=== PATIENT | female | born 1990 | race Caucasian/White ===

== ENCOUNTER 2019-10-28 08:08 | Outpatient (CLI) | payer OTHER, SELFPAY ==
[2019-10-28 08:42] LABS: Basophils Absolute Auto 0.1 K/mm3 (0.0-0.1); Basophils Percent Auto 1.6 % (0.2-1.2); Eosinophils Absolute Auto 0.8 K/mm3 (0-0.3); Eosinophils Percent Auto 9.9 % (0-4.4); Hematocrit 41.1 % (37.0-47.0); Hemoglobin 15.2 g/dL (12.0-15.0); Immature Granulocyte Absolute 0.02 K/mm3 (0.00-0.031); Immature Granulocyte Percent A 0.3 % (0-0.5); Lymphocytes Absolute Auto 2.54 K/mm3 (0.9-3.2); Lymphocytes Percent Auto 33.2 % (18.3-44.2); Mean Corpuscular Hemoglobin 32.1 pg (26-34); Mean Corpuscular Volume 86.9 fl (80-100); Mean Platelet Volume 10.5 fl (7.4-10.4); Monocytes Absolute Auto 0.7 K/mm3 (0.1-0.6); Monocytes Percent Auto 9.7 % (2.6-8.5); Neutrophils Absolute Auto 3.5 K/mm3 (1.3-6.7); Neutrophils Percent Auto 45.3 % (45.5-73.1); Platelet Count Result 293 k/mm3 (150-375); Red Blood Count 4.73 M/mm3 (4.2-5.4); Red Cell Distribution Width 12.8 % (11.5-14.5); White Blood Count 7.6 K/mm3 (4.5-10.0)
[2019-10-28 11:23] LABS: Alanine Aminotransferase 11 U/L (4-35); Albumin Level 4.7 g/dL (3.5-5.1); Alkaline Phosphatase 62 U/L (38-126); Aspartate Amino Transferase 17 U/L (14-36); Bilirubin,Total 0.9 mg/dL (0.2-1.3); Blood Urea Nitrogen 10 mg/dL (7-17); Calcium 10.3 mg/dL (8.4-10.2); Carbon Dioxide 23 mmol/L (22-30); Chloride 104 mmol/L (98-107); Cholesterol 138 mg/dL (0-200); Estimated Glomerular Filt Rate > 60; Glucose 104 mg/dL (65-105); HDL Direct 45 mg/dL; Potassium 3.9 mmol/L (3.4-5.0); Sodium 140 mmol/L (137-145); Triglycerides 55 mg/dL (<150)
[2019-10-28 11:34] LABS: LDL Cholesterol Direct 91 mg/dL
[2019-10-28 11:52] LABS: Thyroid Stimulating Hormone 0.737 uIU/mL (0.465-4.680)
[2019-11-04 18:57] LABS: EBV Nuclear Ab Antibody >600.00 U/mL (<18.00); EBV Nuclear Ab Interpretation Past; EBV Virus Capsid Ag IgG Ab >750.00 U/mL (<18.00); EBV Virus Capsid Ag IgM Ab <36.00 U/mL (<36.00)
== END 2019-10-28 08:09 | disposition home or self-care (01) ==
LOC: ANHLAB 08:09
PROVIDERS: PCP Family Medicine; Visit Provider Family Medicine
DX: Z00.00 Encounter for general adult medical examination without abnormal findings (principal); F32.9 Major depressive disorder, single episode, unspecified; R53.83 Other fatigue
CPT/HCPCS: 36415; 80053; 80061; 84443; 85025; 86664; 86665

== ENCOUNTER 2019-12-23 11:34 | Outpatient (CLI) | payer OTHER, SELFPAY ==
[2019-12-23 11:47] LABS: Basophils Absolute Auto 0.1 K/mm3 (0.0-0.1); Basophils Percent Auto 1.6 % (0.2-1.2); Eosinophils Absolute Auto 0.6 K/mm3 (0-0.3); Eosinophils Percent Auto 7.2 % (0-4.4); Hematocrit 40.8 % (37.0-47.0); Immature Granulocyte Absolute 0.02 K/mm3 (0.00-0.031); Immature Granulocyte Percent A 0.2 % (0-0.5); Lymphocytes Absolute Auto 3.11 K/mm3 (0.9-3.2); Lymphocytes Percent Auto 35.6 % (18.3-44.2); Mean Corpuscular HGB Conc 36.8 g/dl (32-36); Mean Corpuscular Hemoglobin 33.7 pg (26-34); Mean Corpuscular Volume 91.7 fl (80-100); Mean Platelet Volume 10.2 fl (7.4-10.4); Monocytes Absolute Auto 0.8 K/mm3 (0.1-0.6); Monocytes Percent Auto 9.4 % (2.6-8.5); Platelet Count Result 298 k/mm3 (150-375); Red Blood Count 4.45 M/mm3 (4.2-5.4); Red Cell Distribution Width 12.5 % (11.5-14.5); White Blood Count 8.7 K/mm3 (4.5-10.0)
== END 2019-12-23 11:35 | disposition home or self-care (01) ==
LOC: ANHLAB 11:36
PROVIDERS: PCP Family Medicine; Visit Provider Family Medicine
DX: B27.90 Infectious mononucleosis, unspecified without complication (principal)
CPT/HCPCS: 36415; 85025

== ENCOUNTER 2020-03-17 09:10 | Outpatient (CLI) | payer OTHER, SELFPAY ==
[2020-03-17 09:59] LABS: Basophils Absolute Auto 0.1 K/mm3 (0.0-0.1); Basophils Percent Auto 0.6 % (0.2-1.2); Eosinophils Percent Auto 0.1 % (0-4.4); Hematocrit 38.7 % (37.0-47.0); Hemoglobin 14.1 g/dL (12.0-15.0); Immature Granulocyte Absolute 0.02 K/mm3 (0.00-0.031); Immature Granulocyte Percent A 0.2 % (0-0.5); Lymphocytes Absolute Auto 1.24 K/mm3 (0.9-3.2); Lymphocytes Percent Auto 14.3 % (18.3-44.2); Mean Corpuscular HGB Conc 36.4 g/dl (32-36); Mean Corpuscular Hemoglobin 33.3 pg (26-34); Mean Corpuscular Volume 91.5 fl (80-100); Mean Platelet Volume 10.3 fl (7.4-10.4); Monocytes Absolute Auto 0.5 K/mm3 (0.1-0.6); Monocytes Percent Auto 6.1 % (2.6-8.5); Neutrophils Absolute Auto 6.8 K/mm3 (1.3-6.7); Neutrophils Percent Auto 78.7 % (45.5-73.1); Platelet Count Result 309 k/mm3 (150-375); Red Blood Count 4.23 M/mm3 (4.2-5.4); Red Cell Distribution Width 12.3 % (11.5-14.5); White Blood Count 8.7 K/mm3 (4.5-10.0)
[2020-03-17 13:23] LABS: Alanine Aminotransferase 12 U/L (4-35); Albumin Level 4.6 g/dL (3.5-5.1); Alkaline Phosphatase 64 U/L (38-126); Aspartate Amino Transferase 22 U/L (14-36); Bilirubin,Total 0.8 mg/dL (0.2-1.3); Blood Urea Nitrogen 14 mg/dL (7-17); Calcium 10.1 mg/dL (8.4-10.2); Carbon Dioxide 25 mmol/L (22-30); Chloride 105 mmol/L (98-107); Cholesterol 145 mg/dL (0-200); Estimated Glomerular Filt Rate > 60; Glucose 103 mg/dL (65-105); HDL Direct 56 mg/dL; Potassium 4.3 mmol/L (3.4-5.0); Sodium 137 mmol/L (137-145); Triglycerides 48 mg/dL (<150)
[2020-03-17 13:30] LABS: Rheumatoid Factor < 8.6 IU/ML (<12)
[2020-03-17 13:37] LABS: LDL Cholesterol Direct 81 mg/dL
[2020-03-17 13:52] LABS: Thyroid Stimulating Hormone 0.526 uIU/mL (0.465-4.680)
[2020-03-22 19:12] LABS: ANA Cascade Screen Negative (Negative)
== END 2020-03-17 09:11 | disposition home or self-care (01) ==
PROVIDERS: PCP Family Medicine; Visit Provider Family Medicine
DX: L50.9 Urticaria, unspecified (principal)
CPT/HCPCS: 36415; 80053; 80061; 84443; 85025; 86038; 86430

== ENCOUNTER 2020-05-21 08:35 | Outpatient (CLI) | payer OTHER, SELFPAY ==
--- NOTE | ~2020-05-21 | US_ITS ---
EXAMINATION: US right upper quadrant DATE: 05/21/2020 09:02 INDICATION: Right upper quadrant abdominal pain. TECHNIQUE: Multiple grayscale and Doppler ultrasound images of the abdomen were obtained. COMPARISON: Ultrasound 07/09/2019 FINDINGS: The visualized portions of the head, body, and tail of the pancreas are normal. The liver i s normal without focal lesion. There is normal flow in main portal vein. The gallbladder is normal in size and contains sludge. No gallstones or gallbladder wall thickening. There was no sonographic Mur phy sign. The common duct is normal and measures 3 mm. IMPRESSION: 1. Gallbladder sludge. No evidence of acute cholecystitis. Reviewed, dictated and finalized at location A.
== END 2020-05-21 08:36 | disposition home or self-care (01) ==
PROVIDERS: PCP Family Medicine; Visit Provider Family Medicine
DX: R07.81 Pleurodynia (principal); M25.519 Pain in unspecified shoulder; R10.11 Right upper quadrant pain; K82.8 Other specified diseases of gallbladder
CPT/HCPCS: 76705

== ENCOUNTER 2020-05-24 14:56 | Outpatient (CLI) | payer OTHER, SELFPAY ==
[2020-05-24 16:37] LABS: Alanine Aminotransferase 11 U/L (4-35); Albumin Level 4.7 g/dL (3.5-5.1); Alkaline Phosphatase 62 U/L (38-126); Amylase 64 U/L (30-110); Aspartate Amino Transferase 21 U/L (14-36); Bilirubin,Total 0.5 mg/dL (0.2-1.3); Lipase 169 U/L (23-300)
== END 2020-05-24 14:57 | disposition home or self-care (01) ==
LOC: ANHLAB 14:59
PROVIDERS: PCP Family Medicine; Visit Provider Surgery
DX: K81.9 Cholecystitis, unspecified (principal)
CPT/HCPCS: 36415; 80076; 82150; 83690; 86850; 86900; 86901

== ENCOUNTER 2020-05-30 01:09 | Outpatient (CLI) | payer OTHER, SELFPAY ==
[2020-05-30 18:01] LABS: SARS-CoV-2 RNA PCR Negative
== END 2020-05-30 01:10 | disposition home or self-care (01) ==
LOC: ANHCOVIDDT 01:09
PROVIDERS: PCP Family Medicine; Visit Provider Surgery
DX: Z01.812 Encounter for preprocedural laboratory examination (principal); Z20.828 Contact with and (suspected) exposure to other viral communicable diseases
CPT/HCPCS: 87635; C9803; U0003

== ENCOUNTER 2020-06-01 01:32 | Day surgery (SDC) | payer OTHER, SELFPAY ==
[2020-05-23 10:07] VITALS: BMI 24.3
[2020-06-01] VITALS (7 sets, daily range): BP systolic 102–108; BP diastolic 58–68; PULSE 50–65; RESP 12–19; TEMP 35.8–36.7; O2SAT 97–100
--- NOTE | 2020-06-01 07:04 | WPDHPUPDATE1 ---
History and Physical Update Update Date/Time: 06/01/20 07:04 History and Physical has been reviewed, including an updated exam of the patient. There are NO changes in the patient's condition. Risks, benefits, and alternatives have been discussed and questions answered. Patient agrees to proceed with procedure.
--- NOTE | 2020-06-01 08:53 | P.PNAN_ITS ---
Anes - Initial Pre Proc Eval Procedure: Operation Date: 06/01/20 10:45 Proposed Procedures p Laparoscopic Cholecystectomy - Bharath Dennis MD Date/Time: 06/01/20 08:53 Surgeon: Bharath Dennis MD Pre Op Diagnosis: Acalculous Chronic Cholecystitis Patient Data Age: 30 Gender: F Height: 5 ft 1 in Weight: 58.51 kg Allergies Allergy/AdvReac Type Severity Reaction Status Date / Time bee venom protein (honey bee) Allergy Severe very Verified 06/01/20 09:03 severe hives everywhere Sulfa (Sulfonamide Allergy Severe Hives Verified 06/01/20 09:03 Antibiotics) Home Medications Medication Instructions Recorded Confirmed Type alprazolam 0.25 mg tablet 0.25 mg PO DAILY PRN #30 tablet 08/20/19 05/23/20 Rx diphenhydramine HCl [Benadryl 25 mg PO QPM 05/23/20 05/23/20 History Allergy] epinephrine [EpiPen 2-Tereso] 0.3 mg IM ONCE PRN 05/23/20 05/23/20 History famotidine 40 mg PO DAILY 05/23/20 05/23/20 History lamotrigine 50 mg PO QPM 05/23/20 05/23/20 History sertraline 100 mg PO QPM 05/23/20 05/23/20 History valacyclovir [Valtrex] 1,000 mg PO QPM 05/23/20 05/23/20 History Patient hx anesthesia problems: none Family hx anesthesia problems: none PMFSH Social History Social History (Updated 05/23/20 @ 08:53 by Zulma Carrizales [facility]) Smoking packs per day: 0.5 Smoking cigarettes per day: 10.0 Years smoked: 17 Smoking pack-years: 8.50 Smoking status: Current every day smoker Tobacco type: cigarettes Second hand tobacco smoke exposure: Yes Alcohol intake: current Drinks per week: 12 Substance use: current Substance use type: marijuana Last use: 05/22/20 Additional occupation/education comments: abrasive grinder Gender identity (if verbalized by the patient): Female Spiritual care concerns: No Anes - Eval Final PreProcedure Day of Procedure 06/01/20 08:53 Patient weight: normal Heart: regular rate and rhythm Lungs: clear to auscultation Airway: Mallampati scale class II Neurological: alert and oriented ASA classification: II Emergent: no Anesthetic plan: proceed Anesthesia type and monitoring: general ETT and standard monitoring Informed Consent: The patient's anesthetic plan and its attendant risks and benefits were discussed with the patient/family/POA. Questions were solicited and answers provided to the satisfaction of the patient/family/POA.
[2020-06-01] MEDS: ACETAMINOPHEN 500 MG TABLET 1000 MG PO (09:23)
--- NOTE | 2020-06-01 09:56 | P.OP_ITS ---
Procedure Note - Detailed Date of procedure: 06/01/20 Pre-op diagnosis: Acalculous Chronic Cholecystitis Chronic cholecystitis Post-op diagnosis: same Procedure performed: Laparoscopic cholecystectomy Description of procedure: The patient was taken to surgery and induced into general anesthesia. The abdomen was prepped and draped. Trocars were placed in the usual fashion using 0.5% Marcaine with epinephrine and applied Medical optical trocars. A 5 millimeter camera was used. The gallbladder was decompressed with a laparoscopic aspirator. The cholecystotomy was closed with a Vicryl endo-loop. The gallbladder was retracted anterosuperiorly. Adhesions to the gallbladder were taken down so that the cholecystohepatic triangle was exposed. Traction was placed on the infundibulum. The cystic duct and cystic artery were dissected out very clearly. The gallbladder was dissected off the liver at its lower 3rd. Critical view was achieved. We securely clipped and divided the cystic duct and cystic artery. The gallbladder was then further retracted so that the peritoneal attachments to the liver could be divided. Once the gallbladder was freed entirely, it was placed in an Endo-Catch bag and retrieved through the 10 11 epigastric trocar site. The epigastric trocar was then replaced. We reviewed the right upper quadrant. It was irrigated and suctioned. All looked good with no evidence of bleeding or bile leakage. We evacuated CO2 and removed the trocar sleeves. The fascia at the epigastric trocar site was closed with 0 Vicryl suture. Skin wounds were closed with subcuticular 4 O Monocryl skin suture. The wounds were dressed with Exofin surgical adhesive. Patient was awakened and taken to recovery in good condition. Sponge and needle counts were correct x2. Anesthesia: GETA and local (0.5% Marcaine with epinephrine) Surgeon: Bharath Dennis MD Firefighting Equipment Specialist: Payal YOUNG Estimated blood loss (mL): 5 Drains: No Packing: No Pathology: yes (Gallbladder) Complications: None Condition: stable Disposition: PACU Findings: Mild chronic inflammation, no gallstones noted. No biliary ductal dilatation, no liver abnormalities.
[2020-06-01] MEDS: KETOROLAC 15 MG/ML VIAL (*BKC) IV PUSH (09:59)
[2020-06-01] MEDS: LACTATED RINGERS 1,000 ML 30 ML IV CONT ×2 (10:05→11:06)
[2020-06-01] MEDS: ceFAZolin 2 GM/D5W 50 ML 2 GM/50 ML BAG IVPB (10:07)
[2020-06-01] MEDS: BUPIVACAINE/EPINEPHRINE 0.5% 10 ML VIAL 20 ML INFILTRATE (10:15)
[2020-06-01] MEDS: fentaNYL CITRATE INJ (*CRX) 100 MCG/2 ML VIAL 25 MCG IV PUSH ×4 (11:26→11:52)
[2020-06-01] MEDS: oxyCODONE HCL (*CRX) 5 MG TAB IR PO (12:23)
== END 2020-06-01 13:15 | disposition home or self-care (01) ==
PROVIDERS: PCP Family Medicine; Visit Provider Surgery
PROC: 0FT44ZZ Resection of Gallbladder, Percutaneous Endoscopic Approach (ICD-10-PCS; CPT 47562; principal; 2020-06-01 10:45)
DX: K81.1 Chronic cholecystitis (principal); F31.9 Bipolar disorder, unspecified; F41.9 Anxiety disorder, unspecified; L50.9 Urticaria, unspecified; F17.200 Nicotine dependence, unspecified, uncomplicated; F12.90 Cannabis use, unspecified, uncomplicated
CPT/HCPCS: 47562; 88304; A9270; C1713; J0690; J1100; J1885; J2250; J2405; J2704; J2710; J3010; J7030; J7120

== ENCOUNTER 2024-05-15 13:02 | Outpatient (CLI) | payer SELFPAY ==
--- NOTE | ~2024-05-15 | XR_ITS ---
[id number] Ordering provider: Lino Mishra History: . CERVICALGIA . Comparison: December 14, 2005 FINDINGS: VERTEBRAL BODIES: Normal height and alignment. No visible fracture or subluxation. The dens is intact . DISK SPACES: Well maintained. PARASPINOUS SOFT TISSUES: No prevertebral soft tissue swelling. IMPRESSION: No acute osseous abnormality cervical spine. Reviewed, dictated and finalized at location A.
--- NOTE | ~2024-05-15 | XR_ITS ---
EXAMINATION: XR lumbar spine 2-3V DATE: 05/15/2024 13:39 INDICATION: Sciatica. TECHNIQUE: 3 views of the lumbar spine standing were obtained. COMPARISON: None. FINDINGS: There is 3 degrees dextrocurvature of thoracic lumbar spine. Vertebral body heights are nor mal. Intervertebral disc heights are normal. There are endplate osteophytes at multiple levels. There is multilevel mild facet joint osteoarthritis. Surgical clips in the right upper quadrant are likely from cholecystectomy. There is an intrauterine device in expected position. IMPRESSION: 1. Mild lumbar spondylosis. Reviewed, dictated and finalized at location A. IMPRESSION: 1. Mild lumbar spondylosis.
== END 2024-05-15 13:03 | disposition home or self-care (01) ==
DX: M54.2 Cervicalgia (principal); M54.41 Lumbago with sciatica, right side; M47.896 Other spondylosis, lumbar region
CPT/HCPCS: 72040; 72100